=== PATIENT | female | born 1945 | race Caucasian/White ===

== ENCOUNTER 2017-06-28 08:00 | Observation (INO) ==
--- OUTSIDE RECORDS SUMMARY | 2017-06-28 08:05 | External Medical Summary | Clinical Summary ---
:1945 Author Organization [facility] Address [address] [address] Phone Care Team Providers Name Role Phone Unavailable Primary Care Provider Unavailable Allergies Not on File Current Medications Not on file Active Problems Not on file Social History Tobacco Use Types Packs/Day Years Used Date Never Assessed Sex Assigned at Date Recorded Not on file Plan of Treatment Health Maintenance Due Date Last Done Comments Hepatitis C Screening 1945 DTaP,Tdap,and Td Vaccines (1 - Tdap) 07/27/1963 Breast Cancer Screening-Mammogram 1994 Colon Cancer Screening 1994 Zoster Vaccine (#1) 2004 Pneumo-Adult (1 of 2 - PCV13) 2009 Influenza Vaccine (#1) 2017 Results Not on filefrom Last 3 Months
[2017-06-28 08:25] VITALS: BMI 32.3
[2017-06-28 08:57] VITALS: RESP 18
--- NOTE | 2017-06-28 10:02 | Cardiology History & Physical ---
History of Present Illness Chief complaint: atrial fibrillation HPI: Patricia is a 71 year old female who is known to Dr. Blevins with a history of palpitations, PAF, HTN and HLD who had a recent Holter which showed runs of A Fib. She was seen in the clinic and started on Pradaxa and Metoprolol. She is admitted to observation today for antiarrhythmic therapy on flecainide. She is seen in her room. She denies recent illness, fever, chills, cough, sore throat, chest pain or pressure, dyspnea, N/V/D, dysuria. Review of Systems - Constitutional Constitutional: Present: as per HPI. Absent: chills, fever(s) - EENMT Eyes: Absent: blurry vision, change in vision Balance: Absent: vertigo Mouth/Throat: Absent: sore throat - Cardiovascular Cardiovascular: Present: palpitations. Absent: chest pain, syncope, dyspnea on exertion, orthopnea Vascular: Absent: pedal edema - Respiratory Respiratory: Absent: cough, dyspnea, dyspnea on exertion - Gastrointestinal Gastrointestinal: Absent: abdominal pain, diarrhea, nausea, vomiting - Genitourinary Genitourinary: Absent: dysuria - Integumentary/Breasts Integumentary: Absent: rash - Neurological Neurological: Absent: dizziness - Endocrine Endocrine: Present: palpitations PFSH Patient Stated Medical History Cataracts Yes: bi-lat removed Cardiac Arrhythmia Yes Hypertension Yes Other Cardiology Yes: "spells" maybe 6/day Gastroesophageal Reflux Yes Disease Clinic Medical History (Last Reviewed 12/14/16 @ 15:54 by Mercy Higgins MD) High cholesterol (Acute Medical) Surgical History: Appendectomy 1963. Bilateral lasik. Lt knee (cartilage), 2004. breast biopsy age 44 Family History: Family History (Last Reviewed 12/14/16 @ 15:54 by Mercy Higgins MD) Mother Hypertension Aneurysm Sister Hypercholesterolemia Cancer Brother Hypercholesterolemia Diabetes - Social History Smoking status: Never smoker Substance use type: does not use Alcohol intake frequency: does not drink Current occupational status: retired Current residence: Apartment/Private Home Medications Home Medications Medication Instructions Recorded Confirmed Type Crestor (rosuvastatin) 10 mg tablet 10 mg PO DAILY tab 12/14/16 History cholecalciferol (vitamin D3) PO 12/14/16 History lutein 20 mg capsule 20 mg PO DAILY 04/27/17 History Dabigatran [Pradaxa] 1 tab PO BID 06/28/17 06/28/17 History Metoprolol Tartrate [Lopressor] 1 tab PO BID 06/28/17 06/28/17 History Multivitamin [Chewable-Erlin] 1 each PO DAILY 06/28/17 06/28/17 History Zolpidem Tartrate 1 tab PO HS PRN 06/28/17 06/28/17 History Allergies Allergy/AdvReac Type Severity Reaction Status Date / Time No Known Allergies Allergy Verified 06/28/17 08:57 Exam Vital signs: Temperature 95.7 F L 06/28/17 08:14 Pulse Rate 76 06/28/17 08:14 Respiratory Rate 18 06/28/17 08:14 Blood Pressure 145/82 H 06/28/17 08:14 Pulse Oximetry 97 06/28/17 08:14 - Constitutional no acute distress, well nourished, cooperative - Routine HEENT Exam Head: Present: normocephalic ENT: Present: mucous membranes moist - Routine Neck Exam Absent: JVD, carotid bruit - Routine Chest/Breast/Axilla Exam Chest wall: Absent: tenderness - Routine Respiratory Exam Present: CTA bilaterally. Absent: rales, wheezes - Routine Cardiovascular Exam Present: RRR, no murmur - Routine Abdominal Exam Present: soft, normoactive bowel sounds - Routine Extremities Exam Present: no edema - Routine Skin Exam Present: intact, dry, warm - Routine Neurological Exam Present: alert, oriented X3 - Routine Psychiatric Exam Present: normal affect, normal thought process Results 06/28/17 08:40 06/29/17 03:59 CBC 06/28/17 Range/Units 08:40 WBC 7.0 (4.5-11.0) T/MM3 RBC 4.84 (4.00-5.20) M/MM3 Hgb 15.0 (12-16) GM/DL Hct 45.3 (36-46) % Plt Count 256 (130-400) T/MM3 Neut # (Auto) 4.6 (1.8-7.7) T/MM3 Lymph # (Auto) 1.5 (1-4.8) T/MM3 [place] # (Auto) 0.7 (0-0.8) T/MM3 Eos # (Auto) 0.2 (0-0.5) T/MM3 Baso # (Auto) 0.1 (0-0.2) T/MM3 Intake and Output 06/27/17 06/28/17 06/28/17 22:59 06:59 14:59 Other: Weight 199 lb 15.348 oz Patient Weight 06/29/17 06:59 Weight 199 lb 15.348 oz Laboratory Results - last 24 hr 06/28/17 06/28/17 08:40 08:40 WBC 7.0 RBC 4.84 Hgb 15.0 Hct 45.3 MCV 93.6 MCH 31.0 MCHC 33.1 RDW Std Deviation 43.0 Plt Count 256 MPV 10.0 Immature Gran % (Auto) 0.3 Neut % (Auto) 65.7 Lymph % (Auto) 21.7 L [place] % (Auto) 9.3 H Eos % (Auto) 2.3 Baso % (Auto) 0.7 Neut # (Auto) 4.6 Lymph # (Auto) 1.5 [place] # (Auto) 0.7 Eos # (Auto) 0.2 Baso # (Auto) 0.1 Abs Immat Gran (auto) 0.02 Turbidity < 20 Sodium 140 Potassium 4.1 Chloride 106 Carbon Dioxide 25 Anion Gap 9 BUN 11.0 Creatinine 0.6 L GFR Calculation 98 BUN/Creatinine Ratio 18 Glucose 90 Calculated Osmolality 268 Calcium 10.5 H Magnesium 1.9 Total Bilirubin 1.00 Icterus Index < 2 AST 28 ALT 33 Alkaline Phosphatase 80 Total Protein 7.2 Albumin 4.3 Globulin 2.9 Albumin/Globulin Ratio 1.5 Specimen Hemolysis 33 H EKG interpretations - EKG EKG results cardiology: sinus rhythm Hospital Course This is a general summary of the patient's hospital course. For more details refer to the complete medical record. Time spent with patient: 25 - 35 minutes Resuscitation Status: Full Code Assessment and Plan - Attestation Attestation Narrative: 07/04/17 16:02 Recommendation After examining the patient I agree with the above assessment. I am involved in the formulation of the patient's plan of care. - Assessment and Plan (1) Palpitations Status: Acute (2) Paroxysmal atrial fibrillation Status: Acute Recent Holter which showed runs of A Fib. She was seen in the clinic and started on Pradaxa and Metoprolol. She is admitted to observation today for antiarrhythmic therapy on flecainide (3) Essential (primary) hypertension Status: Chronic Continue home Metoprolol 25mg BID (4) Mixed hyperlipidemia Status: Chronic Continue Statin therapy - Assessment and Plan Recent Holter which showed runs of A Fib. She was seen in the clinic and started on Pradaxa and Metoprolol. She is admitted to observation today for antiarrhythmic therapy on flecainide
[2017-06-28] MEDS: FLECAINIDE 100 MG TABLET PO SCH ×2 (10:31→21:13)
[2017-06-28] MEDS ORDERED: ZOLPIDEM 5 MG TABLET PO PRN (13:23)
[2017-06-28] MEDS ORDERED: ROSUVASTATIN 10 MG TABLET PO SCH (21:00)
[2017-06-28] MEDS: SALINE FLUSH 10ml SYRINGE IV PRN (21:14)
[2017-06-29] MEDS: SALINE FLUSH 10ml SYRINGE IV PRN ×2 (06:28→07:47)
[2017-06-29 07:35] VITALS: BP 130/74; PULSE 65; TEMP 97; O2SAT 95
[2017-06-29] MEDS ORDERED: FLECAINIDE 50 MG TABLET PO SCH (09:00)
== END 2017-06-29 10:15 | disposition home or self-care (01) ==
LOC: SRG
PROVIDERS: ADMIT Internal Medicine Cardiovascular Disease; ATTEND Internal Medicine Cardiovascular Disease